=== PATIENT | male | born 1985 | race Caucasian/White ===

== ENCOUNTER 2023-07-30 23:05 | Emergency (ER) | payer SELFPAY ==
[2023-07-30 23:08] VITALS: BP 128/89
--- NOTE | 2023-07-31 01:37 | ED.GENMED ---
History of Present Illness
General
Chief Complaint: Musculo-Skeletal Complaint
Source: patient
Exam Limitations: none
Time Seen by Provider: 07/31/23 00:57
Travel History
Have you had any contact with someone who has COVID-19?: No
Do you have any symptoms of coronavirus? Fever > 100 degrees, chills, cough, shortness of breath, sore throat, loss of taste or smell, muscle aches, or headache?: No
History of Present Illness
History of Present Illness:
38-year-old male who presents after he was found at while while in his feet. The patient states he has been walking for weeks from [place]. He states he was being held 'morally captive'. Patient states he is walking to [place] where he has
family. He basically just complains of small foot wounds and discomfort in his feet from walking. It is noted that his feet, shoes and bottom of his pants are wet. Patient denies fevers or vomiting. States he has been living on the streets for
several weeks.
Past History
Past History
ED Past Medical History: None (Denies)
ED Past Surgical History: Cholecystectomy
Phy Exam
Physical Exam
Physical Exam:
CONSTITUTIONAL Vital signs reviewed, Patient alert and oriented to person, place and time. Well-appearing
HEAD atraumatic, normocephalic.
EYES eyelids normal to inspection, Extraocular muscles intact, Conjunctiva normal, Sclera normal.
NECK normal range of motion, Trachea midline, no jugular venous distention.
RESP no respiratory distress
BACK No obvious deformities
UPPER EXTREMITY Gross Range of motion normal, gross motor strength normal
LOWER EXTREMITY Gross range of motion normal, Gross motor strength normal. Feet have a general redness to them but no evidence of cellulitis. He has small open wounds noted to the lateral aspect of his left foot, medial aspect of his left foot and
right lateral aspect of the distal foot. Normal distal cap refill. Normal pulses
NEURO Speech normal, No focal motor deficits include, [place] coma scale 15, Memory normal, Cranial Nerves intact to screening exam.
SKIN Skin warm, dry, and normal in color.
Course
Vital Signs
Initial and Last Documented VS:
Initial Vital Signs
Temp Pulse Resp BP Pulse Ox
98.2 F 85 18 128/89 100
07/30/23 23:08 07/30/23 23:08 07/30/23 23:08 07/30/23 23:08 07/30/23 23:08
Last Documented Vital Signs
Temp Pulse Resp BP Pulse Ox
98.2 F 85 18 128/89 100
07/30/23 23:08 07/30/23 23:08 07/30/23 23:08 07/30/23 23:08 07/30/23 23:08
MDM/Problems Addressed
MDM/Problems Addressed:
Homelessness, open foot wounds
*Pulse Oximetry
Patient hypoxic: no
*Critical Care Note
Total Time (30-74mins, 75-104mins- exclusive of procedures): Not Applicable
Data Reviewed
Source: patient
Prescriptions/Medications Considered But Not Given:
Considered antibiotics but do not suspect cellulitis
Patient Management
Escalation/DeEscalation of care consider admission/obs:
Do suspect some psychiatric history but patient is not acutely psychotic no evidence of suicidal ideation. He is homeless but had planned on living on the streets [facility]. Local wound care applied to the feet bilaterally. Okay for discharge.
Patient was fed and given juices and milk
ED Attending Note
-
Portions of this chart may have been created with voice recognition software.� Occasional wrong word or��sound alike� substitutions may have occurred due to the inherent limitations of voice recognition software.
Discharge Plan
Departure
Patient Disposition: Home (Routine Discharge)
Date of Disposition: 07/31/23
Time of Disposition: 01:41
Patient with high blood pressure during this ER visit?: No
Discharge Problem:
Wound of foot
Instructions: Wound Care ED
Referrals:
NONE,* [Family Provider] -
Activity Restrictions/Additional Instructions:
Keep wounds clean and dry. Again, try to allow your socks and shoes to dry out when you can. Return or present to an emergency department for fevers, increasing pain or swelling or any any other concerns
Discharge Date and Time
Print Language: [place]
== END 2023-07-31 03:07 | disposition home or self-care (01) ==
LOC: EMR 23:05
PROVIDERS: EMERGENCY PHYSICIAN Emergency Medicine
DX: S91.302A Unspecified open wound, left foot, initial encounter (principal); S91.301A Unspecified open wound, right foot, initial encounter; X58.XXXA Exposure to other specified factors, initial encounter; Y93.01 Activity, walking, marching and hiking; Z59.02 Unsheltered homelessness; Z90.49 Acquired absence of other specified parts of digestive tract
CPT/HCPCS: 99281

== ENCOUNTER 2023-08-08 00:09 | Emergency (ER) | payer SELFPAY ==
[2023-08-08 00:13] VITALS: BP 136/88
--- NOTE | 2023-08-08 02:07 | ED.GENMED ---
History of Present Illness
General
Chief Complaint: Skin Problem
Source: patient
Time Seen by Provider: 08/08/23 02:03
Travel History
Have you had any contact with someone who has COVID-19?: No
Do you have any symptoms of coronavirus? Fever > 100 degrees, chills, cough, shortness of breath, sore throat, loss of taste or smell, muscle aches, or headache?: No
History of Present Illness
History of Present Illness:
38-year-old male with no significant past medical history presenting emergency department with police/EMS after he was found wandering through yards, told police he was walking from [place] to [place] and that he had blisters on the bottom of his
feet. Please asked if he wanted to go to the emergency department and patient wanted to be evaluated. On arrival to the emergency department patient just notes that he is homeless. He is unwilling to elaborate as to why he was attempting to walk
from [place] to [place] stating he just had problems in [place]. He endorses some foot discomfort but no other concerns. Patient does note that he is homeless. He denies any alcohol or drug use. No other concerns.
Past History
Past History
ED Past Medical History: None (Denies)
ED Past Surgical History: Cholecystectomy
Social History
Tobacco: Smoker
Alcohol: None
Drug: None
Personal: Single
Living: homeless
Review of Systems
Review of Systems
All Other Systems: ROS reviewed and negative except as documented in HPI and ROS
Phy Exam
Physical Exam
Physical Exam:
GENERAL: Alert , in no apparent distress, unkempt, appears older than stated age, malodorous
EYE: conjunctiva clear
Head: Normocephalic atraumatic
NECK: Supple,
ENT: mmm.
LUNGS: no acute respiratory distress
NEUROLOGICAL: Alert and oriented
SKIN: Warm and dry, older appearing blisters to bilateral feet without any secondary signs of cellulitis or infection
MUSCULOSKELETAL: well perfused.
PSYCH: Normal and appropriate interaction.
Scores
Heart Failure Risk
Heart Failure Risk Score: Not Applicable
Heart Score for Chest Pain Patients
STEMI patient?: Not applicable
Withdrawal Assessment of Alcohol
Withdrawal Assessment Completed?: Not applicable
Course
Vital Signs
Initial and Last Documented VS:
Initial Vital Signs
Temp Pulse Resp BP Pulse Ox
97 F 84 18 136/88 100
08/08/23 00:13 08/08/23 00:13 08/08/23 00:13 08/08/23 00:13 08/08/23 00:13
Last Documented Vital Signs
Temp Pulse Resp BP Pulse Ox
97 F 84 18 136/88 100
08/08/23 00:13 08/08/23 00:13 08/08/23 00:13 08/08/23 00:13 08/08/23 00:13
MDM/Problems Addressed
MDM/Problems Addressed:
38-year-old male presenting to the emergency department with EMS for further evaluation of bilateral foot discomfort. Patient has older appearing blisters without any secondary signs of cellulitis or infection. At this time I do not see any
emergent pathologies and patient can be safe discharged. He was given food and new socks to wear. Stable for discharge from the ER.
*Pulse Oximetry
Patient hypoxic: no
*Critical Care Note
Total Time (30-74mins, 75-104mins- exclusive of procedures): Not Applicable
Data Reviewed
Review of Other/Old Records Reveals: Records
Source: patient
Patient Management
Escalation/DeEscalation of care consider admission/obs:
On record review patient was just in this emergency about 1 week ago for the same. Localized wound care was applied and he was ultimately discharged.
ED Attending Note
-
Portions of this chart may have been created with voice recognition software.� Occasional wrong word or��sound alike� substitutions may have occurred due to the inherent limitations of voice recognition software.
Discharge Plan
Departure
Patient Disposition: Home (Routine Discharge)
Date of Disposition: 08/08/23
Time of Disposition: 02:07
Patient with high blood pressure during this ER visit?: No
Discharge Problem:
Blister of foot
Instructions: Wound Care (DC)
Interventions
Interventions:
*Risk Screen - Suicide Last Done: 08/08/23 01:00
*General Assessment Last Done: 08/08/23 01:00
*Neglect/Abuse Screening Last Done: 08/08/23 01:00
ED- Fall Risk Assessment Last Done: 08/08/23 01:00
*ED COVID-19 Vaccine History Last Done: 08/08/23 01:00
*Nursing Disposition Last Done: 08/08/23 02:13
ED-Skin Assessment Last Done: 08/08/23 01:13
Discharge Date and Time
Print Language: [place]
== END 2023-08-08 02:27 | disposition home or self-care (01) ==
LOC: EMR 00:09
PROVIDERS: EMERGENCY PHYSICIAN Emergency Medicine
DX: S90.822A Blister (nonthermal), left foot, initial encounter (principal); S90.821A Blister (nonthermal), right foot, initial encounter; X58.XXXA Exposure to other specified factors, initial encounter; F17.200 Nicotine dependence, unspecified, uncomplicated; Z59.00 Homelessness unspecified; Z90.49 Acquired absence of other specified parts of digestive tract
CPT/HCPCS: 99282